=== PATIENT | female | born 1955 | race Caucasian/White ===

== ENCOUNTER 2020-01-12 10:45 | Emergency (ER) | payer BC ==
[~2020-01-12 10:45] MED LIST: Sodium Chloride 0.9% 10 ML Syringe FLUSH PRN
[2020-01-12] MEDS ORDERED: LORazepam 2 MG/ML SDV ONE (10:54)
[2020-01-12] MEDS ORDERED: Etomidate 2 MG/ML 10 ML SDV ONE (10:54)
[2020-01-12] MEDS ORDERED: Propofol 200 MG/20 ML SDV ONE (10:54)
[2020-01-12] MEDS ORDERED: Rocuronium 50 MG/5 ML Vial ONE (10:54)
[2020-01-12] MEDS ORDERED: Sodium Chloride 0.9% 1,000 ML IV ONE (10:56)
[2020-01-12] MEDS ORDERED: Propofol 200 MG/20 ML SDV IVPUSH ONE ×2 (11:29→11:30)
[2020-01-12] MEDS ORDERED: Succinylcholine 200 MG/10 ML MDV IV STA (11:29)
[2020-01-12] MEDS ORDERED: Etomidate 2 MG/ML 10 ML SDV IVPUSH ONE (11:29)
[2020-01-12] MEDS ORDERED: levETIRAcetam 1,000 MG in Sodium Chloride 0.9% 100 ML IV ONE (11:32)
[2020-01-12] MEDS ORDERED: Rocuronium 50 MG/5 ML Vial IV ONE (11:32)
[2020-01-12] MEDS ORDERED: propofoL 50 ML IV SCH (11:45)
[2020-01-12 11:51] LABS: PTT,PARTIAL THROMBOPLSTIN TIME 23.2 SEC (24.0-36.0)
[2020-01-12 11:54] LABS: ANION GAP 15.4 mmol/L (10-20); CHLORIDE,CL 107 mmol/L (98-107); SODIUM,NA 142 mmol/L (136-145)
--- NOTE | 2020-01-12 11:55 | CR ---
[id number] RAD/RAD Chest PA or AP 1V EXAM: FRONTAL CHEST INDICATION: INTUBATION PLACEMENT. COMPARISON: None. DISCUSSION: Endotracheal tube tip is about 25 mm above the chelle. Nasogastric tube is seen to the mid to distal gastric body, but is beyond the [id number] of this study. Possible right internal jugular introduced central line versus catheter overlying the chest tip not clearly seen, but likely overlying the SVC. The lungs are mildly hypoinflated with basilar atelectasis which could obscure infiltrates or other underlying pathology. The heart is mildly enlarged without evidence of congestive heart failure. IMPRESSION: 1. Low lung volumes with mild basilar atelectasis. 2. Endotracheal and nasogastric tubes in satisfactory position. Caio Izaguirre MD 01/12/20 3900 Thank you for allowing us to participate in the care of your patient.
--- NOTE | 2020-01-12 12:12 | EDM.PDOC ---
ED HPI GENERAL MEDICAL PROBLEM - General Stated Complaint: unable to stand or speak Time Seen by Provider: 01/12/20 10:45 Source of Information: Reports: EMS Notes Reviewed, Family History Limitations: Reports: Altered Mental Status, Combative/Threatening - History of Present Illness INITIAL COMMENTS - FREE TEXT/NARRATIVE: Patient comes emergency department today from home by ambulance with concerns of a stroke. HPI is primarily obtained from EMS as well as the due to the patient's combativeness and altered mental status. The known well time of this patient is at 10:00 last night when she spoke with her boyfriend on the phone but did complain of some dizziness as well as some low blood pressure for the last few days. This morning at about 8:00 she called her son and was unable to really communicate over the phone she had garbled speech confusion therefore her son contacted EMS. Upon EMS arrival the patient really was unable to speak many understandable words. She was unable to stand up and noted that she was moving her left side strongly and was weak on the right side. In route to the hospital the patient became more agitated on the cot as well as vomiting multiple times. Was moaning in pain but really did not follow commands or make much conversation or appropriate words. Stroke code was activated prior to the patient's arrival and was standing by in the ER upon the patient's arrival. The patient really does not follow any commands or answer many questions her speech is thick and difficult to understand. - Related Data Allergies Allergy/AdvReac Type Severity Reaction Status Date / Time Unable to Assess Allergy Unverified 01/12/20 11:58 ED ROS GENERAL - Review of Systems Review Of Systems: Unable To Obtain Reason Not Obtained: altered mental status ED EXAM, NEURO - Physical Exam Exam: See Below Text/Narrative:: Arrival the patient is somewhat agitated and combative and moaning and tossing and turning in the bed. She really has no overt understandable clear speech. She does not follow commands. Her right side is weak compared to her left. She is actively gagging and retching and gurgling on her vomit and I have concerns for aspiration. Exam Limited By: Combative/Threatening General Appearance: Alert, Anxious Eye Exam: Bilateral Eye: Abnormal EOM (Her eyes are deviated up into the right.) , PERRL Ears: Normal External Exam, Normal Canal Nose: Normal Inspection Throat/Mouth: Normal Inspection, Normal Oropharynx Head Exam: Atraumatic, Normocephalic Neck: Normal Inspection, Supple Respiratory/Chest: No Respiratory Distress, Lungs Clear, No Accessory Muscle Use Cardiovascular: Normal Peripheral Pulses, Regular Rate, Rhythm GI/Abdominal: Normal Bowel Sounds, Soft (Female) Exam: Deferred Rectal (Female) Exam: Deferred Neurological: Alert, Other (As stated previously her speech is garbled and thick and difficult to understand. She moves her left arms purposefully her right arms are not purposefully moving. They are weak she is barely able to lift them off the cot. Not follow commands.) Extremities: Normal Inspection, No Pedal Edema, Normal Capillary Refill Psychiatric: Anxious Skin Exam: Warm, Dry, Intact. No: Normal Color (She has quite plethoric appearing from the chest up to her head. There is no other rash.) ED NEURO PROCEDURES - Endotracheal Intubation Time of Intubation: 10:55 ET Intubation Indication: Airway Protection Preparation: Suction, Balloon Tested, BVM Set Up, Difficult Airway Equip Airway Assessment: Obese Pre-Oxygenation: Assisted with BVM, 100% FiO2 Anesthesia Meds: Etomidate, Succinylcholine Placement: Orotracheal Cords Visualized: Yes ETT Size In mm: 7.5 Number of Attempts: 1 Confirmed By: CO2 Indicator, Bilateral Breath Sounds, Chest Xray Tube Secured By: By Provider EKG INTERPRETATION EKG Date: 01/12/20 Time: 11:29 Rhythm: NSR Rate (Beats/Min): 69 [place]: Normal P-Wave: Present QRS: Normal ST-T: Normal QT: Normal Course - Vital Signs Last Recorded V/S: Last Vital Signs Temp Pulse Resp BP Pulse Ox 98 01/12/20 12:03 - Orders/Labs/Meds Orders: Active Orders 24 hr Category Date Time Status EKG Documentation Completion [RC] STAT Care 01/12/20 10:34 Active Oxygen Therapy Adult [Oxygen Therapy] [RC] ASDIRECTED Care 01/12/20 12:03 Active RT Ventilator ED, Adult [RC] CONTINUOUS Care 01/12/20 11:25 Active Peripheral IV Insertion Adult [OM.PC] Stat Oth 01/12/20 10:34 Ordered Labs: Laboratory Tests 01/12/20 01/12/20 01/12/20 Range/Units 11:25 11:25 11:25 WBC 5.5 (4.0-10.0) x10^3/uL RBC 4.70 (4.00-5.50) x10^6/uL Hgb 13.6 (12.0-16.0) g/dL Hct 41.5 (33.0-47.0) % MCV 88.3 (78.0-93.0) fL MCH 28.9 (26.0-32.0) pg MCHC 32.8 (32.0-36.0) g/dL RDW Coeff of [place] 13.7 (10.0-15.0) % Plt Count 226 (130-400) x10^3/uL Neut % (Auto) 62.6 (50.0-80.0) % Lymph % (Auto) 29.3 (25.0-50.0) % [place] % (Auto) 5.4 (2.0-11.0) % Eos % (Auto) 2.2 (0.0-4.0) % Baso % (Auto) 0.5 (0.2-1.2) % PT 10.4 (10.0-12.8) SEC INR 0.9 L (2.0-3.5) APTT 23.2 L (24.0-36.0) SEC POC VBG pH (7.31-7.41) POC VBG pCO2 (41-51) POC VBG pO2 POC VBG HCO3 (23-28) POC VBG Total CO2 (24-29) POC VBG Base Excess ((-2) - 3) POC FiO2 Sodium 142 (136-145) mmol/L Potassium 4.4 (3.5-5.1) mmol/L Chloride 107 (98-107) mmol/L Carbon Dioxide 24 (21-32) mmol/L Anion Gap 15.4 (10-20) mmol/L BUN 14 (7-18) mg/dL Creatinine 0.8 (0.55-1.02) mg/dL Est Cr Clr Drug Dosing TNP Estimated GFR (MDRD) > 60 Glucose 161 H (74-106) mg/dL Lactic Acid (0.4-2.0) mmol/L Calcium 8.5 (8.5-10.1) mg/dL Corrected Calcium 9.14 (8.5-10.1) mg/dL Total Bilirubin 0.5 (0.2-1.0) mg/dL AST 22 (15-37) U/L ALT 53 (14-59) U/L Alkaline Phosphatase 75 (46-116) U/L POC Troponin I (0.00-0.08) ng/mL C-Reactive Protein < 0.2 (<=0.9) mg/dL Total Protein 6.2 L (6.4-8.2) g/dL Albumin 3.2 L (3.4-5.0) g/dL Globulin 3.0 Albumin/Globulin Ratio 1.07 Urine Color (YELLOW) Urine Appearance (CLEAR) Urine pH (5.0-8.0) Ur Specific [place] Urine Protein (NEGATIVE) mg/dL Urine Glucose (UA) (NEGATIVE) mg/dL Urine Ketones (NEGATIVE) mg/dL Urine Occult Blood (NEGATIVE) Urine Nitrite (NEGATIVE) Urine Bilirubin (NEGATIVE) Urine Urobilinogen (0.2) EU/dL Ur Leukocyte Esterase (NEGATIVE) Urine RBC (NOT SEEN) /HPF Urine WBC (NOT SEEN) /HPF Ur Squamous Epith Cells (NEGATIVE) /HPF Urine Bacteria (NEGATIVE) /HPF Urine Mucus (NEGATIVE) /LPF 01/12/20 01/12/20 01/12/20 Range/Units 11:25 11:30 11:34 WBC (4.0-10.0) x10^3/uL RBC (4.00-5.50) x10^6/uL Hgb (12.0-16.0) g/dL Hct (33.0-47.0) % MCV (78.0-93.0) fL MCH (26.0-32.0) pg MCHC (32.0-36.0) g/dL RDW Coeff of [place] (10.0-15.0) % Plt Count (130-400) x10^3/uL Neut % (Auto) (50.0-80.0) % Lymph % (Auto) (25.0-50.0) % [place] % (Auto) (2.0-11.0) % Eos % (Auto) (0.0-4.0) % Baso % (Auto) (0.2-1.2) % PT (10.0-12.8) SEC INR (2.0-3.5) APTT (24.0-36.0) SEC POC VBG pH 7.32 (7.31-7.41) POC VBG pCO2 49 (41-51) POC VBG pO2 160 POC VBG HCO3 26 (23-28) POC VBG Total CO2 27 (24-29) POC VBG Base Excess 0 ((-2) - 3) POC FiO2 0.21 Sodium (136-145) mmol/L Potassium (3.5-5.1) mmol/L Chloride (98-107) mmol/L Carbon Dioxide (21-32) mmol/L Anion Gap (10-20) mmol/L BUN (7-18) mg/dL Creatinine (0.55-1.02) mg/dL Est Cr Clr Drug Dosing Estimated GFR (MDRD) Glucose (74-106) mg/dL Lactic Acid 1.3 (0.4-2.0) mmol/L Calcium (8.5-10.1) mg/dL Corrected Calcium (8.5-10.1) mg/dL Total Bilirubin (0.2-1.0) mg/dL AST (15-37) U/L ALT (14-59) U/L Alkaline Phosphatase (46-116) U/L POC Troponin I 0.07 (0.00-0.08) ng/mL C-Reactive Protein (<=0.9) mg/dL Total Protein (6.4-8.2) g/dL Albumin (3.4-5.0) g/dL Globulin Albumin/Globulin Ratio Urine Color (YELLOW) Urine Appearance (CLEAR) Urine pH (5.0-8.0) Ur Specific [place] Urine Protein (NEGATIVE) mg/dL Urine Glucose (UA) (NEGATIVE) mg/dL Urine Ketones (NEGATIVE) mg/dL Urine Occult Blood (NEGATIVE) Urine Nitrite (NEGATIVE) Urine Bilirubin (NEGATIVE) Urine Urobilinogen (0.2) EU/dL Ur Leukocyte Esterase (NEGATIVE) Urine RBC (NOT SEEN) /HPF Urine WBC (NOT SEEN) /HPF Ur Squamous Epith Cells (NEGATIVE) /HPF Urine Bacteria (NEGATIVE) /HPF Urine Mucus (NEGATIVE) /LPF 01/12/20 Range/Units 11:38 WBC (4.0-10.0) x10^3/uL RBC (4.00-5.50) x10^6/uL Hgb (12.0-16.0) g/dL Hct (33.0-47.0) % MCV (78.0-93.0) fL MCH (26.0-32.0) pg MCHC (32.0-36.0) g/dL RDW Coeff of [place] (10.0-15.0) % Plt Count (130-400) x10^3/uL Neut % (Auto) (50.0-80.0) % Lymph % (Auto) (25.0-50.0) % [place] % (Auto) (2.0-11.0) % Eos % (Auto) (0.0-4.0) % Baso % (Auto) (0.2-1.2) % PT (10.0-12.8) SEC INR (2.0-3.5) APTT (24.0-36.0) SEC POC VBG pH (7.31-7.41) POC VBG pCO2 (41-51) POC VBG pO2 POC VBG HCO3 (23-28) POC VBG Total CO2 (24-29) POC VBG Base Excess ((-2) - 3) POC FiO2 Sodium (136-145) mmol/L Potassium (3.5-5.1) mmol/L Chloride (98-107) mmol/L Carbon Dioxide (21-32) mmol/L Anion Gap (10-20) mmol/L BUN (7-18) mg/dL Creatinine (0.55-1.02) mg/dL Est Cr Clr Drug Dosing Estimated GFR (MDRD) Glucose (74-106) mg/dL Lactic Acid (0.4-2.0) mmol/L Calcium (8.5-10.1) mg/dL Corrected Calcium (8.5-10.1) mg/dL Total Bilirubin (0.2-1.0) mg/dL AST (15-37) U/L ALT (14-59) U/L Alkaline Phosphatase (46-116) U/L POC Troponin I (0.00-0.08) ng/mL C-Reactive Protein (<=0.9) mg/dL Total Protein (6.4-8.2) g/dL Albumin (3.4-5.0) g/dL Globulin Albumin/Globulin Ratio Urine Color Dark yellow H (YELLOW) Urine Appearance Clear (CLEAR) Urine pH 5.5 (5.0-8.0) Ur Specific [place] 1.020 Urine Protein Trace H (NEGATIVE) mg/dL Urine Glucose (UA) Negative (NEGATIVE) mg/dL Urine Ketones Negative (NEGATIVE) mg/dL Urine Occult Blood Negative (NEGATIVE) Urine Nitrite Negative (NEGATIVE) Urine Bilirubin Negative (NEGATIVE) Urine Urobilinogen 0.2 (0.2) EU/dL Ur Leukocyte Esterase Negative (NEGATIVE) Urine RBC 0-5 (NOT SEEN) /HPF Urine WBC Not seen (NOT SEEN) /HPF Ur Squamous Epith Cells Occasional H (NEGATIVE) /HPF Urine Bacteria Not seen (NEGATIVE) /HPF Urine Mucus Few H (NEGATIVE) /LPF Meds: Medications Discontinued Medications Generic Name Dose Route Start Last Admin Trade Name Freq PRN Reason Stop Dose Admin Etomidate 20 mg 01/12/20 11:29 Amidate IVPUSH 01/12/20 11:30 ONETIME ONE Propofol 50 mls @ 13.32 mls/hr 01/12/20 11:45 Diprivan 50 Ml IV .TITRATE GWEN Protocol 20 MCG/KG/MIN Levetiracetam 1,000 mg/ Sodium 110 mls @ 400 mls/hr 01/12/20 11:32 Chloride IV 01/12/20 11:46 ONETIME ONE Iopamidol 100 ml 01/12/20 12:18 01/12/20 12:21 Isovue-300 (61%) IVPUSH 01/12/20 12:19 100 ml ONETIME ONE Administration Propofol 75 mg 01/12/20 11:29 Diprivan 20 Ml IVPUSH 01/12/20 11:30 ONETIME ONE Propofol 75 mg 01/12/20 11:30 Diprivan 20 Ml IVPUSH 01/12/20 11:31 ONETIME ONE Rocuronium Golden 50 mg 01/12/20 11:32 Zemuron IV 01/12/20 11:33 ONETIME ONE Sodium Chloride 10 ml 01/12/20 10:34 Saline Flush FLUSH ASDIRECTED PRN Keep Vein Open Succinylcholine Chloride 100 mg 01/12/20 11:29 Quelicin IV 01/12/20 11:30 NOW STA - Radiology Interpretation Free Text/Narrative:: CT of the head per radiology shows no intracranial hemorrhage, extra-axial fluid collection, mass or acute ischemia. 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 CTA of the head and neck per radiology shows no definite large vessel occlusion within the head or neck. Prior aneurysm repair likely of left posterior communicating artery origin. No definite new aneurysm when allowing for limitations. Chest x-ray of the chest following endotracheal intubation shows endotracheal and nasogastric tubes in satisfactory position. Low lung volumes with mild by basilar atelectasis - Re-Assessments/Exams Free Text/Narrative Re-Assessment/Exam: 01/12/20 17:42 The stroke team was activated prior to the patient's arrival and was present in the emergency department upon the patient's arrival. Due to the patient's agitation combativeness vomiting and gagging and gurgling on her vomit I had concerns for not only airway control but also a diagnostic CT scan for the concerns of a stroke. Due to these previously concerns the decision to RSI and intubated the patient for airway control as well as further evaluation was determined. Appropriate a patient was identified. A running IV was verified. The patient was given preoxygenation. She received etomidate and succinylcholine prior to intubation. She was easily intubated with 1 attempt with the use of the glide scope. She had bilateral lung sounds as well as negative epigastric sounds. Oxygen saturation was appropriate and end-tidal CO2 as well as appropriate. The ET tube was secured with a commercially made ET tube securing device. She had continuous sedation of Ativan initially then some propofol. SHe was connected to the vent and monitored and adjusted by myself. He was brought emergently to the CT scan where a CT without contrast was initially completed and reviewed extemporaneously by myself. There is clearly a coiling in place. There is no sites of active bleeding. A CTA head and neck was then completed following that with the read pending. While she was in the CAT scan her she did awake and actually had much more purposeful stronger movement of the right side than she had previously. She was continued on propofol sedation. She was also given 1gram of Keppra IVPB EKG was unremarkable normal sinus rhythm without any of atrial fibrillation. Her laboratory evaluation is rather unremarkable as well as a troponin of 0.07. CTA of the head neck was negative per radiology. I called and spoke with Dr. Jarrett the neurologist front line leader at [place] in [place]. HPI ER COURSE findings and concerns were relayed to him verbally over the phone. He did have the CT scan available for review at that time. No new orders at this time and the patient was accepted as a stroke protocol to [facility]. Please see nurses notes for times and vital sign documentation. The patient was appropriately sedated with the propofol gtt. No signs of seizure. Pupils 4mm MATTEO brisk bilaterally. Support was given to the family. Departure - Departure Time of Disposition: 12:00 Disposition: DC/Tfer to [facility] 02 Clinical Impression: Altered mental status Qualifiers: Altered mental status type: unspecified Qualified Code(s): R41.82 - Altered mental status, unspecified CVA (cerebral vascular accident) Qualifiers: CVA mechanism: unspecified Qualified Code(s): I63.9 - Cerebral infarction, unspecified - Discharge Information Referrals: PCP,None [Primary Care Provider] - Forms: Interfacility Transfer EMTALA Critical Care Note - Critical Care Note Total Time (mins): 65 Comments: IN direct management of this patient as well as extemporaneously reviewing CT head consultation with specialist in [place] for a stroke code, and consultation and support for family. This does not include separate billable procedures such as intubation and ventilation management which was also completed by myself. Sepsis Event Note - Focused Exam Vital Signs: Vital Signs Pulse Ox 01/12/20 12:03 98 Date Exam was Performed: 01/12/20 Time Exam was Performed: 17:42 - My Orders Last 24 Hours: My Active Orders 01/12/20 10:34 EKG Documentation Completion [RC] STAT Peripheral IV Insertion Adult [OM.PC] Stat 01/12/20 11:25 RT Ventilator ED, Adult [RC] CONTINUOUS 01/12/20 12:03 Oxygen Therapy Adult [Oxygen Therapy] [RC] ASDIRECTED - Assessment/Plan Last 24 Hours: My Active Orders 01/12/20 10:34 EKG Documentation Completion [RC] STAT Peripheral IV Insertion Adult [OM.PC] Stat 01/12/20 11:25 RT Ventilator ED, Adult [RC] CONTINUOUS 01/12/20 12:03 Oxygen Therapy Adult [Oxygen Therapy] [RC] ASDIRECTED Assessment:: Altered mental status-? Stroke vs unknown cause. Right sided weakness SLurred garbled speech ? CVA Hx of cerebral aneurysm coiling. Vomiting and gagging with concerns of airway compromise resulting in RSI intubation. Plan: [facility] care management and evaluation.
[2020-01-12] MEDS: Iopamidol 612 MG/ML 100 ML Bottle IVPUSH ONE (12:21)
--- NOTE | 2020-01-12 12:25 | CT ---
[id number] CT/CTA Head Neck EXAM: CTA Head Neck, CT head CLINICAL DATA: ? STROKE. COMPARISON STUDY: None FINDINGS: There is an endotracheal tube in place. 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 No intracranial hemorrhage, extra-axial fluid collection, mass, or acute ischemia. Generalized parenchymal atrophy with scattered areas of nonspecific white matter disease, commonly seen as sequela of chronic microvascular ischemia. Soft tissues are unremarkable. Paranasal sinuses and mastoid air cells are clear. CTA head neck: The origin of the great vessels are not evaluated on this study. There are scattered atherosclerotic calcifications seen throughout the common, internal and external carotid arteries bilaterally without hemodynamically significant stenosis or occlusion. There is codominant of the vertebral arteries without hemodynamically significant stenosis or occlusion. No aneurysm or dissection. There is a large number of coils in the region of the left posterior communicating artery likely related to prior aneurysm repair. This limits evaluation secondary to streak artifact of the surrounding vessels. The visualized anterior, middle and posterior cerebral arteries are symmetric without vessel cut off. No new aneurysms are identified. IMPRESSION: 1. No definite large vessel occlusion within the head or neck. 2. Prior aneurysm repair likely of left posterior communicating artery origin. No definite new aneurysm when allowing for limitations as described above. Marcelo Quintero DO 01/12/20 1224 Thank you for allowing us to participate in the care of your patient.
== END 2020-01-12 12:25 | disposition short-term general hospital (02) ==
LOC: VM.ED 10:45
DX: I63.9 Cerebral infarction, unspecified (principal); R41.82 Altered mental status, unspecified
CPT/HCPCS: 31500; 70496; 70498; 71045; 80053; 81001; 82803; 83605; 84484; 85025; 85610; 85730; 86140; 93005; 94002; 99291; J0330; J1953; J2060; J2704; J3490; J7030; Q9967